=== PATIENT | male | born 1980 | race Caucasian/White ===

== ENCOUNTER 2023-09-16 10:44 | Day surgery (SDC) | payer OTHER ==
[2023-09-15 09:09] VITALS: BMI 19.0
[2023-09-16] MEDS ORDERED: Lidocaine 1% PF 5 ML VIAL ONE (12:27)
[2023-09-16] MEDS ORDERED: Ketorolac Tromethamine 30 MG (1 mL) VIAL ONE (12:27)
[2023-09-16] MEDS ORDERED: PROPOFOL 20 ML ONE (12:27)
[2023-09-16] MEDS ORDERED: Midazolam HCl 2 mg/2 ml Vial ONE (12:27)
[2023-09-16] MEDS ORDERED: fentaNYL 50 mcg/mL 1 mL Vial ONE ×2 (12:27)
[2023-09-16] MEDS ORDERED: Ondansetron PF 4 MG/2 ML Vial ONE (12:27)
[2023-09-16] MEDS ORDERED: Dexamethasone 20 MG/5 ML VIAL ONE (12:27)
[2023-09-16] MEDS ORDERED: CEFAZOLIN 2 GM VIAL ONE (12:52)
[2023-09-16] MEDS ORDERED: Neomycin-Polymyxin 1 ML AMP FS SCH (13:00)
[2023-09-16] MEDS ORDERED: Bupivacaine 0.5% 10 ML VIAL ONE (13:31)
== END 2023-09-16 15:10 | disposition home or self-care (01) ==
LOC: CSHSDC 10:44
PROVIDERS: ATTEND Podiatrist Foot & Ankle Surgery
PROC: 0SQM0ZZ Repair Right Metatarsal-Phalangeal Joint, Open Approach (ICD-10-PCS; principal; 2023-09-16)
DX: M20.21 Hallux rigidus, right foot (principal); M20.22 Hallux rigidus, left foot; J45.909 Unspecified asthma, uncomplicated; R00.2 Palpitations; F17.210 Nicotine dependence, cigarettes, uncomplicated; K21.9 Gastro-esophageal reflux disease without esophagitis
CPT/HCPCS: C1776; J1100; J1885; J2250; J2405; J2704; J3010; J3490

== ENCOUNTER 2024-02-12 10:25 | Day surgery (SDC) | payer OTHER ==
[2024-02-12] MEDS ORDERED: Famotidine/PF 20 mg/2ml Vial ONE (12:33)
[2024-02-12] MEDS ORDERED: fentaNYL 50 mcg/mL 1 mL Vial ONE (12:41)
[2024-02-12] MEDS ORDERED: CEFAZOLIN 2 GM VIAL ONE (12:52)
[2024-02-12] MEDS ORDERED: ePHEDrine Sulfate 50 MG/10 ML VIAL ONE (13:21)
[2024-02-12] MEDS ORDERED: Bupivacaine 0.5% 10 ML VIAL ONE (13:43)
[2024-02-12] MEDS ORDERED: Sevoflurane 250 ML INH ANEST BOTTLE ONE (17:07)
== END 2024-02-12 17:05 | disposition home or self-care (01) ==
LOC: CSHSDC 10:25
PROVIDERS: ATTEND Podiatrist Foot & Ankle Surgery
PROC: 0SRN0JZ Replacement of Left Metatarsal-Phalangeal Joint with Synthetic Substitute, Open Approach (ICD-10-PCS; principal; 2024-02-12)
DX: M20.22 Hallux rigidus, left foot (principal); M20.21 Hallux rigidus, right foot; J45.909 Unspecified asthma, uncomplicated; Z79.899 Other long term (current) drug therapy
CPT/HCPCS: C1776; J3010; J3490

== ENCOUNTER 2025-02-19 21:16 | Emergency (ER) | payer OTHER ==
[2025-02-19 22:00] LABS: #Basophils 0.03 10x3/uL (0.0-0.2); #Eosinophils 0.59 10x3/uL (0.0-0.5); #Monocytes 1.04 10x3/uL (0.0-1.1); #Neutrophils 6.61 10x3/uL (1.5-8.4); %Basophils 0.3 % (0.0-2.0); %Eosinophils 5.5 % (0.0-6.0); %Lymphocytes 22.9 % (18.0-47.0); %Monocytes 9.7 % (0.0-10.0); %Neutrophils 61.3 % (40.0-75.0); Hematocrit 44.6 % (38.8-50.0); Hemoglobin 15.3 g/dL (13.5-17.5); Mean Corpuscular Hemoglobin 28.3 pg (27.0-33.0); Mean Corpuscular Volume 82.6 fL (81.2-95.1); Platelet Count 244 10x3/uL (150-450); Red Blood Cell (RBC) Count 5.40 10x6/uL (4.32-5.72); White Blood Cell (WBC) Count 10.76 10x3/uL (3.5-10.5)
[2025-02-19 22:19] LABS: ALT (SGPT) 22 U/L (Less than 45); AST (SGOT) 19 U/L (11-34); Albumin 3.8 g/dL (3.1-4.5); Alkaline Phosphatase 84 U/L (40-110); Anion Gap 15 mmol/L (10-20); BUN (Urea Nitrogen) 20 mg/dL (8.9-20.6); Bilirubin, Total 0.3 mg/dL (0.3-1.2); Calc. Creatinine Clearance 0 mL/min (70-130); Calcium 9.1 mg/dL (7.8-10.44); Carbon Dioxide 21 mmol/L (22-29); Chloride 108 mmol/L (98-107); Globulin 3.3 g/dL (2.4-3.5); Glucose 104 mg/dL (70-105); Potassium 4.4 mmol/L (3.5-5.1); Sodium 140 mmol/L (136-145)
[2025-02-20] MEDS ORDERED: Dexamethasone 10 MG/ML VIAL ONE (00:08)
[2025-02-20] MEDS ORDERED: Magnesium 2 GM/50 ML BAG (IN WATER) ONE (00:09)
[2025-02-20] MEDS ORDERED: Amoxicillin/Potassium Clav 875 MG TAB ONE (00:09)
== END 2025-02-20 01:26 | disposition home or self-care (01) ==
LOC: CSHERS 21:16
DX: J45.901 Unspecified asthma with (acute) exacerbation (principal); J01.90 Acute sinusitis, unspecified; Z79.51 Long term (current) use of inhaled steroids
CPT/HCPCS: 71045; 80053; 83605; 85025; 87428; 94640; 94760; 96374; 96375; J1100; J3475; J7620